=== PATIENT | female | born 1945 | race Caucasian/White ===

== ENCOUNTER → 2020-07-08 14:56 | Outpatient (CLI) | payer MEDICARE, OTHER, SELFPAY ==
[2020-07-08] MEDS: COVID-19 VACC #1, MRNA(MOD) 100 MCG/0.5 ML VIAL IM (15:01)
== END ==
PROVIDERS: PCP Family Medicine; Visit Provider Internal Medicine
DX: Z23 Encounter for immunization (principal)
CPT/HCPCS: 0011A; 91301

== ENCOUNTER → 2020-08-05 15:37 | Outpatient (CLI) | payer MEDICARE, OTHER, SELFPAY ==
[2020-08-05] MEDS: COVID-19 VACC #2, MRNA(MOD) 100 MCG/0.5 ML VIAL IM (15:42)
== END ==
PROVIDERS: PCP Family Medicine; Visit Provider Internal Medicine
DX: Z23 Encounter for immunization (principal)
CPT/HCPCS: 0012A; 91301

== ENCOUNTER → 2022-03-21 12:52 | Outpatient (CLI) | payer MEDICARE, OTHER, SELFPAY ==
--- NOTE | 2022-03-21 12:54 | DI.ECHO.S_ITS ---
[facility] +---------+ : : [address] : [address] : : : : [id number] : : : : Phone: [phone]+ Echocardiogram Report + + :Name: CARROL LADD Study Date: 03/21/2022 Height: 63 in : :[facility] ReadingLocation: Weight: 160 lb : : Gender: Female BSA: 1.8 m2 : :: 1945 Age: 77 yrs BP: 166/87 mmHg: :Reason For Study: Atrial fibrillation : :Ordering Physician: PROMISE, : :ROMEO Performed By: Elvira Vela : :Referring: ROMEO CORONA : + + Interpretation Summary The left ventricle is normal in size and wall thickness. Left ventricular systolic function appears normal without focal wall motion abnormalities. The ejection fraction is estimated to be 60-65%. Diastolic parameters suggest a relaxation abnormality of the left ventricle, consistent with probable normal filling pressures. The right ventricle is normal in size and function. The right ventricular systolic pressure is estimated to be at least 21 mmHg based on an estimated right atrial pressure of 3 mm Hg. The left atrial size is normal. Right atrial size is normal. There is mild to moderate aortic regurgitation. There is no other significant valvular heart disease. The aortic root is normal size. Procedure: A two-dimensional transthoracic echocardiogram with color flow and Doppler was performed. The study quality was technically adequate. There is no prior echocardiogram noted for this patient. The patient was in sinus bradycardia with heart rates between 50-54 bpm during the exam. Left Ventricle: The left ventricle is normal in size and wall thickness. Left ventricular systolic function appears normal without focal wall motion abnormalities. The ejection fraction is estimated to be 60-65%. Diastolic parameters suggest a relaxation abnormality of the left ventricle, consistent with probable normal filling pressures. Right Ventricle: The right ventricle is normal in size and function. Atria: The left atrial size is normal. Right atrial size is normal. There is no Doppler evidence for an interatrial shunt. Mitral Valve: The mitral valve is normal in structure and function. There is mild mitral regurgitation. Aortic Valve: The aortic valve is trileaflet. The aortic valve opens well. There is no aortic valve stenosis. There is mild to moderate aortic regurgitation. Tricuspid Valve: The tricuspid valve is normal in structure and function. There is mild tricuspid regurgitation. The right ventricular systolic pressure is estimated to be at least 21 mmHg based on an estimated right atrial pressure of 3 mm Hg. Pulmonic Valve: The pulmonic valve leaflets are thin and pliable; valve motion is normal. There is no pulmonic valvular regurgitation. There is no other significant valvular heart disease. Great Vessels: The aortic root is normal size. The dimensions of the ascending aorta are normal. The IVC is of normal diameter and collapses greater than 50% with a sniff. This suggests a low right atrial pressure of 3 mm Hg. Pericardium/ Pleura There is no pericardial effusion. There is no pleural effusion. MMode/2D Measurements & Calculations LVIDd: 5.0 cm LVOT diam: 2.0 cm LVIDs: 3.1 cm Ao root diam: 3.3 cm FS: 39.0 % asc Aorta Diam: 3.2 cm IVSd: 0.84 cm LVPWd: 0.83 cm LV tena. diameter/BSA (cm/m^2): 2.9 LV sys. diameter/BSA (cm/m^2): 1.7 LA A2 area: 21.0 cm2 RA long axis: 4.8 cm LA A4 area: 13.7 cm2 RA area: 13.4 cm2 LA length (vol): 4.7 cm RA vol: 32.2 ml LA vol: 52.4 ml RA : 18.3 ml/m2 LA vol index: 29.8 ml/m2 IVC diam: 1.0 cm RVD1 (basal): 2.9 cm RVD2 (mid): 2.4 cm TAPSE: 2.4 cm Doppler Measurements & Calculations Ao V2 max: 134.6 cm/sec LVOT Max Gulshan: 111.7 cm/sec Ao V2 mean: 99.3 cm/sec LV V1 max P.0 mmHg Ao max P.2 mmHg LV V1 VTI: 28.1 cm Ao mean P.3 mmHg LIVIA(I,D): 2.4 cm2 Ao V2 VTI: 36.3 cm LIVIA(V,D): 2.6 cm2 sev ratio: 0.77 LIVIA indexed to BSA (cm^2/m^2): 1.4 AI P1/2t: 562.8 msec AI dec slope: 199.4 cm/sec2 MV E max gulshan: 66.9 cm/sec TR max gulshan: 213.4 cm/sec MV A max gulshan: 93.4 cm/sec TR max P.2 mmHg MV E/A: 0.72 PA V2 max: 96.9 cm/sec Med Peak E' Gulshan: 6.3 cm/sec PA V2 mean: 62.1 cm/sec E/E' med: 10.6 PA mean P.8 mmHg Lat Peak E' Gulshan: 6.9 cm/sec PA pr(Accel): 37.9 mmHg E/E' lat: 9.7 E/e' average: 10.1 MV dec time: 0.28 sec SV(LVOT): 88.7 ml Reading Physician:05:10 PM
[2022-03-21 14:06] LABS: COVID19 -Nasal RAPID Negative (Negative)
--- NOTE | 2022-03-21 18:39 | DI.NM.S_ITS ---
DATE OF SERVICE: 03/21/2022 PROCEDURE: Exercise stress test. INDICATION: Paroxysmal AFib. CARDIAC STRESS: The patient underwent exercise stress test under the supervision of an attending staff. She walked on Favian protocol for 5 minutes and achieved 97 percent of target heart rate with maximum heart rate of 140. Baseline blood pressure 138/78 mmHg. Maximum blood pressure 180/80 mmHg. Achieved 7 METs of workload and JACK -1 percent. Baseline rhythm was sinus. During stress, there were some nonspecific ST changes and frequent premature ventricular contractions, including ventricular couplets and some triplets without any sustained ventricular tachycardia. No chest discomfort. The patient has moderate shortness of breath. CONCLUSION: Exercise stress test did not show any obvious inducible ischemia. Fair exercise tolerance. Functional aerobic impairment -1 percent. Normal hemodynamic response. Frequent premature ventricular contractions including couplets and some ventricular triplets without any sustained ventricular tachycardia. No obvious atrial fibrillation seen. Correlate clinically. Sneha Quezada - KARYN/jeff/marcio doc#: [id number]/job#: [id number] dd: 03/21/2022 17:49:00 dt: 03/21/2022 18:04:00 DICTATING /COPIES TO: Jazmin Jordan MD COPIES MNE: JOHN;
== END ==
PROVIDERS: PCP Family Medicine; Referring Provider Internal Medicine Cardiovascular Disease; Visit Provider Internal Medicine Cardiovascular Disease
DX: I48.0 Paroxysmal atrial fibrillation (principal); Z20.822 Contact with and (suspected) exposure to COVID-19; I08.3 Combined rheumatic disorders of mitral, aortic and tricuspid valves
CPT/HCPCS: 87635; 93017; 93306